=== PATIENT | female | born 1995 | race American Indian/Alaskan Native ===

== ENCOUNTER 2021-09-12 17:04 | Emergency (ER) | payer OTHER ==
[~2021-09-12] VITALS: Ht 172.7 cm; Wt 62.6 kg
[2021-09-12] MEDS ORDERED: ONDANSETRON ODT8 MG PO (20:53)
[2021-09-12] MEDS ORDERED: CEPHALEXIN500 M1 PO (20:53)
[2021-09-12] MEDS ORDERED: HYDROCODON-ACE1 EA10 PO (20:53)
== END 2021-09-12 21:56 | disposition home or self-care (01) ==
LOC: ED 17:04
DX: N12 Tubulo-interstitial nephritis, not specified as acute or chronic (principal); Z88.0 Allergy status to penicillin; Z20.822 Contact with and (suspected) exposure to COVID-19
CPT/HCPCS: 36415; 80053; 81001; 83605; 84703; 85025; 87502; A9270; C9803; J0696; J7030; U0003